=== PATIENT | female | born 1995 | race African-American/Black ===

== ENCOUNTER 2017-07-20 13:31 | Inpatient (IN) ==
[2017-07-20] MEDS ORDERED: DEXTROSE 50% 25 GM/50 ML VIAL IV PRN ×2 (15:24→19:13)
[2017-07-20] MEDS ORDERED: GLUCAGON 1 MG VIAL IM PRN ×2 (15:24→19:13)
[2017-07-20 20:01] LABS: Basophils % 0.3 % (0.0-0.8); Eosinophils % 0.6 % (0.00-10.9); Hematocrit 32.9 VOL% (35.7-47.0); Hemoglobin 11.2 GM/DL (12.0-16.0); Lymphocytes # 1.7 10*3/uL (1.4-4.0); Lymphocytes % 49.1 % (21.3-54.2); Mean Corpuscular Hemoglobin 32 PG (27-34); Mean Corpuscular Volume 92.7 FL (87-102); Mean Platelet Volume 10.4 FL (9.6-12.0); Monocytes # 0.2 10*3/uL (0.11-0.8); Monocytes % 6.3 % (1.7-12.7); Neutrophils # 1.5 10*3/uL (1.4-7.4); Neutrophils % 43.7 % (38.7-73.9); Platelet Count 123 T/CUMM (130-400); Red Blood Count 3.55 MC/CUMM (3.8-5.5); Red Cell Distribution Width 13.3 % (9.3-17.3); White Blood Count 3.5 T/CUMM (4-12)
[2017-07-20 20:22] LABS: Alanine Aminotransferase 11 U/L (13-56); Albumin 2.4 G/DL (3.4-5.0); Alkaline Phosphatase 56 U/L (45-117); Aspartate Amino Transferase 8 U/L (0-37); Bilirubin,Total < 0.39 MG/DL (0.2-1.0); Blood Urea Nitrogen 8 MG/DL (7-18); Calcium 7.7 MG/DL (8.5-10.1); Glucose 290 MG/DL (74-106); Osmolality,Calculated 283.7 MOS/KG (273-304); Potassium 3.7 MMOL/L (3.5-5.1); Sodium 138 MMOL/L (136-145); Total Protein 5.9 G/DL (6.4-8.3)
[2017-07-20] MEDS: INSULIN ASPART PROTAMINE/ASPART 70/30 100 UNIT/ML SUBCUT SCH (20:34)
[2017-07-20] MEDS: INSULIN REGULAR 100 UNIT/ML SUBCUT SCH (20:35)
[2017-07-21] MEDS: INSULIN ASPART PROTAMINE/ASPART 70/30 100 UNIT/ML SUBCUT SCH ×2 (08:19→19:47)
[2017-07-21] MEDS: INSULIN REGULAR 100 UNIT/ML SUBCUT SCH ×4 (08:20→19:46)
[2017-07-22 00:50] LABS: Creatinine 24 Hr Urine Result 1.37 G/24HR (0.60-1.80)
[2017-07-22 00:51] LABS: Collection Time,Urine 24 HOURS; Total Protein 24 Hr Ur Result 264 MG/24HR (0-149.1); Total Volume,Urine 1100 ML (400-2000)
[2017-07-22] MEDS: INSULIN ASPART PROTAMINE/ASPART 70/30 100 UNIT/ML SUBCUT SCH ×3 (08:56→18:28)
[2017-07-22] MEDS: INSULIN REGULAR 100 UNIT/ML SUBCUT SCH ×4 (08:56→20:57)
[2017-07-22] MEDS ORDERED: INSULIN ASPART PROTAMINE/ASPART 70/30 100 UNIT/ML SUBCUT SCH ×2 (17:19→17:30)
[2017-07-23] MEDS: INSULIN ASPART PROTAMINE/ASPART 70/30 100 UNIT/ML SUBCUT SCH (07:54)
[2017-07-23 08:16] VITALS: BP 107/70
[2017-07-23] MEDS: INSULIN REGULAR 100 UNIT/ML SUBCUT SCH (08:43)
== END 2017-07-23 13:35 | disposition home or self-care (01) | DRG 566 ==
LOC: N.LDOUT 13:31 → N.OB 13:32
PROVIDERS: ADMIT Obstetrics & Gynecology; ATTEND Obstetrics & Gynecology

== ENCOUNTER 2017-08-24 11:22 | Inpatient (IN) ==
[~2017-08-24 11:22] MED LIST: INSULIN REGULAR 100 UNIT/ML SUBCUT ONE
[2017-08-24] MEDS ORDERED: ONDANSETRON 4 MG/2 ML VIAL IV PRN (11:54)
[2017-08-24] MEDS ORDERED: MEPERIDINE 50 MG/1 ML VIAL IV PRN (11:54)
[2017-08-24] MEDS ORDERED: OXYTOCIN/LR 20 UNIT/1,000 ML BAG IV SCH (12:00)
[2017-08-24 12:40] LABS: Basophils % 0.3 % (0.0-0.8); Hematocrit 34.8 VOL% (35.7-47.0); Hemoglobin 11.6 GM/DL (12.0-16.0); Immature Granulocytes % 0.5 %; Immature Granulocytes Absolute 0.02 #; Lymphocytes # 1.7 10*3/uL (1.4-4.0); Lymphocytes % 41.8 % (21.3-54.2); Mean Corpuscular HGB Conc 33.3 GM/DL (32-36); Mean Corpuscular Hemoglobin 31 PG (27-34); Mean Corpuscular Volume 92.6 FL (87-102); Mean Platelet Volume 11.2 FL (9.6-12.0); Monocytes # 0.2 10*3/uL (0.11-0.8); Monocytes % 5.1 % (1.7-12.7); Neutrophils % 51.3 % (38.7-73.9); Platelet Count 135 T/CUMM (130-400); Red Blood Count 3.76 MC/CUMM (3.8-5.5); Red Cell Distribution Width 12.5 % (9.3-17.3)
[2017-08-24] MEDS: BETAMETH SODIUM PHOS/ACETATE 30 MG/5 ML VIAL IM SCH (12:59)
[2017-08-24] MEDS: LACTATED RINGERS 1,000 ML IV SCH ×2 (13:00→19:25)
[2017-08-24 13:09] LABS: Alanine Aminotransferase 14 U/L (13-56); Albumin 2.5 G/DL (3.4-5.0); Alkaline Phosphatase 93 U/L (45-117); Aspartate Amino Transferase 10 U/L (0-37); Bilirubin,Total < 0.39 MG/DL (0.2-1.0); Blood Urea Nitrogen 9 MG/DL (7-18); Calcium 8.5 MG/DL (8.5-10.1); Glucose 145 MG/DL (74-106); Osmolality,Calculated 278.5 MOS/KG (273-304); Potassium 3.4 MMOL/L (3.5-5.1); Sodium 139 MMOL/L (136-145); Total Protein 6.9 G/DL (6.4-8.3); Uric Acid 4.3 MG/DL (2.6-6.0)
[2017-08-24] MEDS ORDERED: GLUCAGON 1 MG VIAL IM PRN (18:32)
[2017-08-24] MEDS ORDERED: DEXTROSE 50% 25 GM/50 ML VIAL IV PRN (18:32)
[2017-08-24] MEDS ORDERED: INSULIN NPH/REGULAR 70/30 100 UNIT/ML SUBCUT SCH (19:00)
[2017-08-24] MEDS ORDERED: ACETAMINOPHEN 325 MG TABLET PO ONE (20:01)
[2017-08-24] MEDS ORDERED: BETAMETH SODIUM PHOS/ACETATE 30 MG/5 ML VIAL IM SCH (22:30)
[2017-08-24] MEDS: BUTORPHANOL 2 MG/ML VIAL IV PRN (23:40)
[2017-08-25] MEDS: BETAMETH SODIUM PHOS/ACETATE 30 MG/5 ML VIAL IM SCH (01:16)
[2017-08-25] MEDS ORDERED: OXYTOCIN/LR 20 UNIT/1,000 ML BAG IV SCH (06:00)
[2017-08-25] MEDS ORDERED: INSULIN NPH/REGULAR 70/30 100 UNIT/ML SUBCUT SCH (07:30)
[2017-08-25] MEDS ORDERED: INSULIN REGULAR 100 UNIT/ML ONE (07:49)
[2017-08-25] MEDS: BUTORPHANOL 2 MG/ML VIAL IV PRN ×2 (07:58→11:35)
[2017-08-25] MEDS: LACTATED RINGERS 1,000 ML IV SCH ×2 (08:11→13:54)
[2017-08-25] MEDS ORDERED: AMPICILLIN INJ 2,000 MG in SODIUM CHLORIDE 0.9% 100 ML IV ONE (09:43)
[2017-08-25] MEDS ORDERED: INSULIN REGULAR 100 UNIT/ML SUBCUT SCH (10:00)
[2017-08-25] MEDS ORDERED: ONDANSETRON 4 MG/2 ML VIAL IV ONE (10:28)
[2017-08-25] MEDS ORDERED: ePHEDrine 50 MG/ML AMP IV PRN (10:28)
[2017-08-25] MEDS ORDERED: diphenhydrAMINE 50 MG/1 ML VIAL IV PRN ×2 (10:28)
[2017-08-25] MEDS ORDERED: PROMETHAZINE 25 MG/1 ML VIAL IM ONE (10:28)
[2017-08-25] MEDS ORDERED: FAMOTIDINE 20 MG/2 ML VIAL IV ONE (10:28)
[2017-08-25] MEDS ORDERED: hydrOXYzine HCL 25 MG/1 ML VIAL IM PRN (10:28)
[2017-08-25] MEDS ORDERED: CITRIC ACID/SODIUM CITRATE 30 ML UDCUP PO ONE (10:28)
[2017-08-25] MEDS ORDERED: LACTATED RINGERS 1,000 ML IV ONE (10:28)
[2017-08-25] MEDS ORDERED: fentaNYL 2 MCG/ROPIV 0.2% EPID 150 ML EPIDURAL SCH (10:30)
[2017-08-25 11:25] LABS: Apearance,Urine CLEAR (Clear); Bilirubin,Urine Negative (Negative); Blood, Urine Negative (Negative); Glucose,Urine (UA) >=500 mg/dL (Negative); Ketones,Urine 80 mg/dL (Negative); Mucus,Urine Occasional /LPF (Occasional); Nitrite,Urine Negative (Negative); Protein,Urine Negative; RBC,Urine <1 /HPF (0-4); Squamous Epithelial Cell,Urine Occasional /HPF (0-10); Urine Color Yellow (Yellow); Urine Specific Gravity 1.026 (1.001-1.035); WBC,Urine <1 /HPF (0-6)
[2017-08-25] MEDS ORDERED: AMPICILLIN INJ 1,000 MG in SODIUM CHLORIDE 0.9% 100 ML IV SCH (14:00)
[2017-08-25] MEDS ORDERED: LIDOCAINE 1% 50 ML VIAL ONE (16:51)
[2017-08-25] MEDS ORDERED: miSOPROStol 200 MCG TABLET ONE (16:52)
[2017-08-25 18:01] LABS: Cord Arterial Blood HCO3 18.5 MMOL/L
[2017-08-25 18:03] LABS: Cord Venous Blood HCO3 23.3 MMOL/L; Cord Venous Blood PCO2 44.5 MMHG; Cord Venous Blood PO2 24.5 MMHG
[2017-08-25] MEDS ORDERED: oxyCODONE/ACETAMINOPHEN 5-325 MG TABLET PO PRN ×2 (20:59)
[2017-08-25] MEDS ORDERED: MEASLES/MUMPS/RUBELLA VACCINE 0.5 ML VIAL SUBCUT ONE (20:59)
[2017-08-25] MEDS ORDERED: RHO(D) IMMUNE GLOBULIN 300 MCG SYRINGE IM ONE (20:59)
[2017-08-25] MEDS ORDERED: IBUPROFEN 800 MG TABLET PO PRN (20:59)
[2017-08-25] MEDS ORDERED: WITCH HAZEL PADS 100/JAR TOP PRN (20:59)
[2017-08-25] MEDS ORDERED: BENZOCAINE 20%/MENTHOL 0.5% SPRAY 56 GM CAN TOP PRN (20:59)
[2017-08-25] MEDS ORDERED: ACETAMINOPHEN/CODEINE 300-30 MG TABLET PO PRN (20:59)
[2017-08-25] MEDS ORDERED: HYDROCORTISONE 2.5% RECTAL CREAM 30 GM TUBE TOP PRN (20:59)
[2017-08-25] MEDS ORDERED: DIPH/TET/ACEL PERT BOOSTER VACCINE 0.5 ML VIAL IM ONE (20:59)
[2017-08-25] MEDS ORDERED: BISACODYL 10 MG SUPP RECTAL PRN (20:59)
[2017-08-25] MEDS ORDERED: LANOLIN 50% CREAM 0.3 OZ TUBE TOP PRN (20:59)
[2017-08-25] MEDS: INSULIN REGULAR 100 UNIT/ML SUBCUT SCH (21:31)
[2017-08-25] MEDS: DOCUSATE SODIUM 100 MG CAPSULE PO SCH (21:33)
[2017-08-25] MEDS: INSULIN NPH/REGULAR 70/30 100 UNIT/ML SUBCUT SCH (21:40)
[2017-08-25] MEDS: SODIUM CHLORIDE 0.9% 1,000 ML IV SCH (21:42)
[2017-08-26 05:17] LABS: Basophils % 0.1 % (0.0-0.8); Eosinophils % 0.1 % (0.00-10.9); Hematocrit 30.3 VOL% (35.7-47.0); Hemoglobin 10.6 GM/DL (12.0-16.0); Immature Granulocytes % 0.7 %; Immature Granulocytes Absolute 0.08 #; Lymphocytes # 1.8 10*3/uL (1.4-4.0); Lymphocytes % 15.7 % (21.3-54.2); Mean Corpuscular Hemoglobin 32 PG (27-34); Mean Corpuscular Volume 91.5 FL (87-102); Monocytes # 0.8 10*3/uL (0.11-0.8); Monocytes % 6.4 % (1.7-12.7); Platelet Count 130 T/CUMM (130-400); Red Blood Count 3.31 MC/CUMM (3.8-5.5); Red Cell Distribution Width 12.5 % (9.3-17.3); White Blood Count 11.7 T/CUMM (4-12)
[2017-08-26] MEDS: SODIUM CHLORIDE 0.9% 1,000 ML IV SCH (05:32)
[2017-08-26] MEDS ORDERED: INFLUENZA VIRUS VACCINE 0.5 ML SYRINGE IM ONE (07:00)
[2017-08-26] MEDS: DOCUSATE SODIUM 100 MG CAPSULE PO SCH ×2 (08:46→21:16)
[2017-08-26] MEDS: INSULIN NPH/REGULAR 70/30 100 UNIT/ML SUBCUT SCH ×2 (08:46→17:35)
[2017-08-26] MEDS: INSULIN REGULAR 100 UNIT/ML SUBCUT SCH ×2 (08:46)
[2017-08-27] MEDS: INSULIN REGULAR 100 UNIT/ML SUBCUT SCH (08:12)
[2017-08-27] MEDS: INSULIN NPH/REGULAR 70/30 100 UNIT/ML SUBCUT SCH (08:12)
[2017-08-27] MEDS: DOCUSATE SODIUM 100 MG CAPSULE PO SCH (09:54)
[2017-08-27 10:34] VITALS: BP 124/77
[2017-08-27] MEDS ORDERED: INFLUENZA VIRUS VACCINE 0.5 ML SYRINGE IM ONE (15:51)
[2017-08-27] MEDS ORDERED: DIPH/TET/ACEL PERT BOOSTER VACCINE 0.5 ML VIAL IM ONE (15:51)
== END 2017-08-27 16:30 | disposition home or self-care (01) | DRG 560 ==
LOC: N.LDOUT 11:22 → N.LD 11:23 → N.OB 08-25 20:35
PROVIDERS: ADMIT Obstetrics & Gynecology; ATTEND Obstetrics & Gynecology